=== PATIENT | female | born 1965 | race Caucasian/White ===

== ENCOUNTER 2023-08-14 23:38 | Inpatient (IN) | payer MEDICAID ==
[~2023-08-14] VITALS: Ht 160 cm; Wt 47.7 kg
[2023-08-15 00:32] LABS: MEAN CORPUSCULAR VOLUME 93.1 FL (78-98); MEAN PLATELET VOLUME 6.3 FL (7.4-10.4); RED CELL DISTRIBUTION WIDTH 13.3 % (11.5-14.5)
[2023-08-15 00:34] LABS: BASOPHILS % (AUTO) 0.3 % (0-1); EOSINOPHILS % (AUTO) 0.2 % (0-6); HEMOGLOBIN 15.6 g/dl (12.0-16.0); LYMPHOCYTES # (AUTO) 1.2 X10'3 (1.1-4.8); LYMPHOCYTES % (AUTO) 12.6 % (21-51); MEAN CORPUSCULAR HEMOGLOBIN 31.6 PG (27.0-31.0); MONOCYTES # (AUTO) 0.5 X10'3 (0-0.9); NEUTROPHILS # (AUTO) 7.6 X10'3 (1.8-7.7); NEUTROPHILS % (AUTO) 81.9 % (42-75); PLATELET COUNT 227 X10'3 (140-440); RED BLOOD COUNT 4.93 X10'6 (4.20-5.60); WHITE BLOOD COUNT 9.3 X10'3 (4.5-11.0)
[2023-08-15 00:35] LABS: URINE HCG NEGATIVE (NEG)
[2023-08-15 00:42] LABS: ALBUMIN 4.3 G/DL (3.4-5.0); ANION GAP 12 (8-16); BLOOD UREA NITROGEN 14 MG/DL (7-18); BUN/CREATININE RATIO 16.1 (10.0-20.0); CALCIUM 10.1 MG/DL (8.5-10.1); CHLORIDE 101 MMOL/L (99-107); CREATININE 0.87 MG/DL (0.40-0.90); ETHANOL < 10 MG/DL (<10); GLUCOSE 89 MG/DL (70-104); POTASSIUM 3.9 MMOL/L (3.5-5.1); SODIUM 137 MMOL/L (135-145); TOTAL CARBON DIOXIDE 23.9 MMOL/L (24-32); eCRCL 59 ML/MIN; eGFR 67 ML/MIN
[2023-08-15 00:50] LABS: URINE AMPHETAMINE SCREEN NEGATIVE (Neg); URINE BARBITUATE SCREEN NEGATIVE (Neg); URINE BENZODIAZEPINES SCREEN NEGATIVE (Neg); URINE CANNABINOID SCREEN NEGATIVE (Neg); URINE COCAINE SCREEN NEGATIVE (Neg); URINE METHADONE SCREEN NEGATIVE (Neg); URINE OPIATE SCREEN NEGATIVE (Neg); URINE PHENCYCLIDINE SCREEN NEGATIVE (Neg)
[2023-08-15 07:35] LABS: THYROID STIMULATING HORMONE 4.36 ulU/ml (0.34-4.50)
[2023-08-15 18:42] LABS: UA COLLECTION TYPE CLN CATCH MIDSTREAM
[2023-08-15 18:43] LABS: BILIRUBIN,URINE SMALL (Neg); CLARITY,URINE CLOUDY (Clear); COLOR,URINE YELLOW (Yellow); GLUCOSE, URINE NEGATIVE (Neg); KETONES,URINE >=80 mg/dl (Neg); LEUKOCYTE ESTERASE ,URINE NEGATIVE (Neg); NITRITES, URINE NEGATIVE (Neg); OCCULT BLOOD,URINE NEGATIVE (Neg); PH,URINE 6.5 (4.8-8.0); PROTEIN,URINE NEGATIVE (Neg); UROBILINOGEN,URINE 0.2 E.U/dL (0.2-1.0)
[2023-08-15 18:44] LABS: BACTERIA,URINE FEW /HPF (Neg); CAL OXALATE CRYSTALS 3+ /HPF (NEGATIVE); MUCUS STRANDS FEW /LPF (Neg); SQUAMOUS EPITHELIAL CELL,UR FEW /LPF (FEW); URIC ACID CRYSTALS FEW /HPF (NEGATIVE); WBC,URINE 0-4 /HPF (0-4)
[2023-08-16] MEDS ORDERED: NO HOME MEDS (00:48)
[2023-08-16] MEDS: OLANZapine 5mg rapidly disint. tablet PO SCH (08:40)
[2023-08-16] MEDS: divalproex sod 250mg ER (24-hour) tablet PO SCH (21:00)
[2023-08-18] MEDS: lactose-reduced food (Ensure Enlive) - 237ml bottle PO SCH (18:00)
[2023-08-18] MEDS: OLANZapine 5mg rapidly disint. tablet PO ONE (21:12)
[2023-08-19 13:48] LABS: ALANINE AMINOTRANSFERASE 21 U/L (12-78); ALBUMIN 3.7 G/DL (3.4-5.0); ALKALINE PHOSPHATASE 62 IU/L (46-116); ANION GAP 12 (8-16); ASPARTATE AMINO TRANSFERASE 15 U/L (10-37); BLOOD UREA NITROGEN 31 MG/DL (7-18); BUN/CREATININE RATIO 47.7 (10.0-20.0); CALCIUM 9.9 MG/DL (8.5-10.1); CHLORIDE 104 MMOL/L (99-107); CREATININE 0.65 MG/DL (0.40-0.90); GLUCOSE 108 MG/DL (70-104); POTASSIUM 3.6 MMOL/L (3.5-5.1); SODIUM 142 MMOL/L (135-145); TOTAL CARBON DIOXIDE 26.4 MMOL/L (24-32); TOTAL PROTEIN 7.5 G/DL (6.4-8.2); eCRCL 54 ML/MIN; eGFR > 90 ML/MIN
[2023-08-28 19:16] LABS: ALANINE AMINOTRANSFERASE 14 U/L (12-78); ALBUMIN 3.2 G/DL (3.4-5.0); ALBUMIN/GLOBULIN RATIO 0.9 (1.1-1.5); ALKALINE PHOSPHATASE 137 IU/L (46-116); ANION GAP 8 (8-16); ASPARTATE AMINO TRANSFERASE 12 U/L (10-37); BILIRUBIN,TOTAL 0.4 MG/DL (0.1-1.0); BLOOD UREA NITROGEN 18 MG/DL (7-18); BUN/CREATININE RATIO 28.1 (10.0-20.0); CALCIUM 9.4 MG/DL (8.5-10.1); CHLORIDE 107 MMOL/L (99-107); CREATININE 0.64 MG/DL (0.40-0.90); GLUCOSE 117 MG/DL (70-104); POTASSIUM 3.9 MMOL/L (3.5-5.1); SODIUM 143 MMOL/L (135-145); TOTAL CARBON DIOXIDE 28.5 MMOL/L (24-32); TOTAL PROTEIN 6.8 G/DL (6.4-8.2); eCRCL 62 ML/MIN; eGFR > 90 ML/MIN
[2023-08-28 19:17] LABS: BASOPHILS % (AUTO) 0.3 % (0-1); EOSINOPHILS # (AUTO) 0.1 X10'3 (0-0.9); EOSINOPHILS % (AUTO) 2.8 % (0-6); HEMATOCRIT 40.8 % (35.0-45.0); HEMOGLOBIN 13.8 g/dl (12.0-16.0); LYMPHOCYTES # (AUTO) 0.9 X10'3 (1.1-4.8); LYMPHOCYTES % (AUTO) 20.4 % (21-51); MEAN CORPUSCULAR HEMOGLOBIN 31.7 PG (27.0-31.0); MEAN CORPUSCULAR HGB CONC 33.8 g/dL (33.0-36.5); MEAN CORPUSCULAR VOLUME 93.8 FL (78-98); MEAN PLATELET VOLUME 6.7 FL (7.4-10.4); MONOCYTES # (AUTO) 0.3 X10'3 (0-0.9); MONOCYTES % (AUTO) 7.6 % (2-12); NEUTROPHILS % (AUTO) 68.9 % (42-75); PLATELET COUNT 245 X10'3 (140-440); RED BLOOD COUNT 4.35 X10'6 (4.20-5.60); RED CELL DISTRIBUTION WIDTH 13.1 % (11.5-14.5); WHITE BLOOD COUNT 4.4 X10'3 (4.5-11.0)
[2023-08-29] MEDS: mirtazapine 15mg tablet PO SCH (21:46)
[2023-08-29] MEDS: risperiDONE 2mg tablet PO SCH (21:47)
[2023-08-30] MEDS: mirtazapine 15mg tablet PO SCH (20:48)
[2023-08-31 09:12] LABS: BASOPHILS % (AUTO) 0.3 % (0-1); EOSINOPHILS # (AUTO) 0.1 X10'3 (0-0.9); EOSINOPHILS % (AUTO) 2.4 % (0-6); HEMATOCRIT 36.7 % (35.0-45.0); HEMOGLOBIN 12.5 g/dl (12.0-16.0); LYMPHOCYTES # (AUTO) 1.1 X10'3 (1.1-4.8); LYMPHOCYTES % (AUTO) 22.3 % (21-51); MEAN CORPUSCULAR HEMOGLOBIN 31.5 PG (27.0-31.0); MEAN CORPUSCULAR VOLUME 92.8 FL (78-98); MEAN PLATELET VOLUME 6.5 FL (7.4-10.4); MONOCYTES # (AUTO) 0.3 X10'3 (0-0.9); MONOCYTES % (AUTO) 6.6 % (2-12); NEUTROPHILS # (AUTO) 3.5 X10'3 (1.8-7.7); NEUTROPHILS % (AUTO) 68.4 % (42-75); PLATELET COUNT 215 X10'3 (140-440); RED BLOOD COUNT 3.95 X10'6 (4.20-5.60); RED CELL DISTRIBUTION WIDTH 12.8 % (11.5-14.5); WHITE BLOOD COUNT 5.1 X10'3 (4.5-11.0)
[2023-08-31 09:21] LABS: ALBUMIN 2.9 G/DL (3.4-5.0); ANION GAP 11 (8-16); BLOOD UREA NITROGEN 36 MG/DL (7-18); BUN/CREATININE RATIO 40.9 (10.0-20.0); CALCIUM 9.1 MG/DL (8.5-10.1); CHLORIDE 107 MMOL/L (99-107); CREATININE 0.88 MG/DL (0.40-0.90); GLUCOSE 65 MG/DL (70-104); MAGNESIUM 2.1 MG/DL (1.5-2.4); POTASSIUM 4.3 MMOL/L (3.5-5.1); SODIUM 143 MMOL/L (135-145); TOTAL CARBON DIOXIDE 25.2 MMOL/L (24-32); eCRCL 45 ML/MIN; eGFR 66 ML/MIN
[2023-09-01] MEDS ORDERED: DIVA-81 PO (15:54)
[2023-09-01] MEDS ORDERED: MIRT-142 PO (15:55)
[2023-09-01] MEDS ORDERED: RISP2TAB97 PO (15:56)
[2023-09-01 16:02] VITALS: BP 92/48; PULSE 112; RESP 18; TEMP 97.6; O2SAT 97
[2023-09-01 16:12] VITALS: RESP 18; O2SAT 97
[2023-09-01] MEDS ORDERED: mag hydrox/Alum hydrox/simeth 30ml oral suspension PO PRN (16:40)
[2023-09-01] MEDS ORDERED: acetaminophen 325mg tablet PO PRN ×2 (16:40)
[2023-09-01] MEDS ORDERED: magnesium hydroxide 30ml (MOM) UD suspension PO PRN (16:40)
[2023-09-01 19:00] VITALS: BP 134/78; PULSE 97; RESP 18; TEMP 98; O2SAT 99
[2023-09-01 20:00] VITALS: BP 134/72; PULSE 97; RESP 18; TEMP 98; O2SAT 99
[2023-09-01 21:01] VITALS: BP 134/72; PULSE 97; RESP 18; TEMP 98; O2SAT 99
[2023-09-02 07:00] VITALS: RESP 14; O2SAT 96
[2023-09-02 08:00] VITALS: BP 90/57; PULSE 70; RESP 14; TEMP 98.7; O2SAT 96
[2023-09-02 09:18] LABS: BASOPHILS % (AUTO) 0.3 % (0-1); EOSINOPHILS # (AUTO) 0.2 X10'3 (0-0.9); EOSINOPHILS % (AUTO) 3.4 % (0-6); HEMATOCRIT 34.6 % (35.0-45.0); LYMPHOCYTES # (AUTO) 1.1 X10'3 (1.1-4.8); LYMPHOCYTES % (AUTO) 25.4 % (21-51); MEAN CORPUSCULAR HEMOGLOBIN 32.1 PG (27.0-31.0); MEAN CORPUSCULAR HGB CONC 34.6 g/dL (33.0-36.5); MEAN PLATELET VOLUME 6.6 FL (7.4-10.4); MONOCYTES # (AUTO) 0.4 X10'3 (0-0.9); NEUTROPHILS # (AUTO) 2.8 X10'3 (1.8-7.7); NEUTROPHILS % (AUTO) 61.9 % (42-75); PLATELET COUNT 221 X10'3 (140-440); RED BLOOD COUNT 3.73 X10'6 (4.20-5.60); RED CELL DISTRIBUTION WIDTH 12.9 % (11.5-14.5); WHITE BLOOD COUNT 4.5 X10'3 (4.5-11.0)
[2023-09-02 09:33] LABS: HEMOGLOBIN A1C 5.5 % (4.5-6.2)
[2023-09-02 09:42] LABS: ALBUMIN 2.8 G/DL (3.4-5.0); ANION GAP 5 (8-16); BLOOD UREA NITROGEN 25 MG/DL (7-18); BUN/CREATININE RATIO 45.5 (10.0-20.0); CHLORIDE 107 MMOL/L (99-107); CHOL/HDL RATIO 2.7 (0.00-4.99); CHOLESTEROL 145 MG/DL (0-200); CREATININE 0.55 MG/DL (0.40-0.90); GLUCOSE 87 MG/DL (70-104); HDL CHOLESTEROL 53 MG/DL (35-60); LDL CHOLESTEROL 77 MG/DL (50-100); POTASSIUM 3.6 MMOL/L (3.5-5.1); SODIUM 142 MMOL/L (135-145); THYROID STIMULATING HORMONE 4.53 ulU/ml (0.34-4.50); TOTAL CARBON DIOXIDE 30.4 MMOL/L (24-32); TRIGLYCERIDES 92 MG/DL (20-135); eCRCL 73 ML/MIN; eGFR > 90 ML/MIN
[2023-09-02] MEDS ORDERED: iohexol 300mg/ml 100ml inj. ONE (15:18)
[2023-09-02 15:32] LABS: FERRITIN 118 NG/ML (8-252)
[2023-09-02 15:35] LABS: % IRON SATURATION 30 % (11-46); IRON 64 UG/DL (49-151); TOTAL IRON BINDING CAPACITY 215 UG/DL (259-388)
[2023-09-02] MEDS: lactose-reduced food (Ensure Enlive) - 237ml bottle PO SCH (17:00)
[2023-09-02 19:00] VITALS: BP 90/63; PULSE 74; RESP 14; TEMP 99; O2SAT 97
[2023-09-03 07:00] VITALS: BP 89/50; PULSE 91; RESP 12; TEMP 98.9; O2SAT 95
[2023-09-03 08:00] VITALS: RESP 12; O2SAT 95
[2023-09-03] MEDS: multivitamins, therapeutics tablet PO SCH (08:00)
[2023-09-03 09:17] VITALS: BP 87/56; PULSE 62
[2023-09-03 19:00] VITALS: RESP 14
[2023-09-03 20:00] VITALS: PULSE 64; RESP 14; TEMP 98.1
[2023-09-04 07:00] VITALS: BP 90/55; PULSE 70; RESP 14; TEMP 99.9; O2SAT 97
[2023-09-04] MEDS: buPROPion SR 150mg tablet PO ONE (12:31)
[2023-09-04] MEDS: divalproex 250mg tablet, delayed-release PO ONE (15:47)
[2023-09-04] MEDS: loperamide 2mg capsule PO PRN (18:49)
[2023-09-04] MEDS: dronabinol 2.5mg capsule PO SCH (18:50)
[2023-09-04 19:00] VITALS: RESP 16; O2SAT 98
[2023-09-04 20:00] VITALS: BP 90/57; PULSE 81; RESP 16; TEMP 97.6; O2SAT 98
[2023-09-05 07:00] VITALS: BP 78/47; PULSE 60; RESP 12; TEMP 99.2; O2SAT 96
[2023-09-05 07:45] VITALS: BP 95/56; PULSE 76
[2023-09-05] MEDS ORDERED: buPROPion SR 150mg tablet PO SCH (08:00)
[2023-09-05] MEDS: lactose-reduced food (Ensure Enlive) - 237ml bottle PO SCH (13:08)
[2023-09-05 19:00] VITALS: BP 105/68; PULSE 85; RESP 15; TEMP 96; O2SAT 98
[2023-09-06 07:30] VITALS: BP 101/71; PULSE 61; RESP 12; TEMP 98; O2SAT 97
[2023-09-06 19:00] VITALS: BP 99/67; PULSE 80; RESP 18; TEMP 97.7; O2SAT 99
[2023-09-06] MEDS: mirtazapine 15mg tablet PO SCH (20:19)
[2023-09-07] MEDS: levoTHYROXINE 25mcg tablet PO SCH (07:00)
[2023-09-07 07:30] VITALS: BP 101/60; PULSE 71; RESP 16; TEMP 98; O2SAT 96
[2023-09-07 19:00] VITALS: BP 111/67; PULSE 85; RESP 16; TEMP 98.8; O2SAT 99
[2023-09-08 07:00] VITALS: RESP 16; O2SAT 96
[2023-09-08 08:00] VITALS: BP 82/51; PULSE 75; RESP 16; TEMP 99.4; O2SAT 96
[2023-09-08 19:00] VITALS: BP 118/70; PULSE 103; RESP 16; TEMP 99.3; O2SAT 97
[2023-09-09 07:34] VITALS: BP 102/59; PULSE 75; RESP 14; TEMP 98.7; O2SAT 96
[2023-09-09 08:26] VITALS: RESP 14; O2SAT 96
[2023-09-09 19:00] VITALS: RESP 16; O2SAT 98
[2023-09-09 19:24] VITALS: BP 94/62; PULSE 83; RESP 16; TEMP 98.6; O2SAT 62
[2023-09-10 08:00] VITALS: BP 90/53; PULSE 83; RESP 12; TEMP 97.9; O2SAT 96
[2023-09-10 19:00] VITALS: RESP 16; O2SAT 95
[2023-09-10 20:00] VITALS: BP 107/71; PULSE 102; RESP 16; TEMP 97.7; O2SAT 95
[2023-09-11 07:42] VITALS: BP 102/67; PULSE 80; RESP 16; TEMP 97.9; O2SAT 94
[2023-09-11 19:00] VITALS: RESP 16; O2SAT 96
[2023-09-11 19:27] VITALS: BP 120/74; PULSE 107; RESP 16; TEMP 99; O2SAT 93
[2023-09-12 05:55] VITALS: TEMP 98
[2023-09-12 08:00] VITALS: BP 101/62; PULSE 78; RESP 15; TEMP 98.4; O2SAT 95
[2023-09-12] MEDS ORDERED: MULT-25 PO (12:02)
[2023-09-12] MEDS ORDERED: MIRT-66 PO (12:02)
[2023-09-12] MEDS ORDERED: DRON2.5C18 PO (12:02)
== END 2023-09-12 14:38 | disposition home or self-care (01) | DRG 754 ==
LOC: ER 23:40 → ADULT MH 09-01 14:55
PROVIDERS: ADMIT Student in an Organized Health Care Education/Training Program; ATTEND Student in an Organized Health Care Education/Training Program
PROC: GZHZZZZ Group Psychotherapy (ICD-10-PCS; principal; 2023-09-06)
PROC: GZ51ZZZ Individual Psychotherapy, Behavioral (ICD-10-PCS; 2023-09-06)
DX: F32.9 Major depressive disorder, single episode, unspecified (principal); E46 Unspecified protein-calorie malnutrition; F29 Unspecified psychosis not due to a substance or known physiological condition; Z20.822 Contact with and (suspected) exposure to COVID-19; F41.9 Anxiety disorder, unspecified; Z79.899 Other long term (current) drug therapy; Z68.1 Body mass index [BMI] 19.9 or less, adult
CPT/HCPCS: 36415; 71260; 74177; 80048; 80053; 80061; 80305; 80320; 81001; 81025; 82728; 82948; 83036; 83540; 83550; 83735; 84145; 84443; 85025; 85651; 87081; 87811; 92508; 92616; 99285; Q0167; Q9967